=== PATIENT | female | born 1965 | race Two or more races ===

== ENCOUNTER 2018-09-06 07:02 | Day surgery (SDC) | payer BC ==
[2018-09-03 15:01] VITALS: BMI 31.1
--- NOTE | 2018-09-06 06:31 | P.GSHP ---
History of Present Illness H&P Date: 09/06/18 CHIEF COMPLAINT: GERD HISTORY OF PRESENT ILLNESS: The patient is a 53-year-old female who presents reports gastroesophageal reflux disease. Upper endoscopy was offered for further evaluation and management. PAST MEDICAL HISTORY: Please see list. PAST SURGICAL HISTORY: Please see list. MEDICATIONS: Please see list. ALLERGIES: Please see list. SOCIAL HISTORY: No illicit drug use FAMILY HISTORY: No reports of Crohn disease or ulcerative colitis. REVIEW OF ORGAN SYSTEMS: CONSTITUTIONAL: No reports of fevers or chills. GI: Denies any blood in stools or constipation. PHYSICAL EXAM: VITAL SIGNS: Stable GENERAL: Well-developed and pleasant in no acute distress. HEENT: No scleral icterus. Extraocular movements grossly intact. Moist buccal mucosa. NECK: Supple without lymphadenopathy. CHEST: Unlabored respirations. Equal bilateral excursions. CARDIOVASCULAR: Regular rate and rhythm. Distal 2+ pulses. ABDOMEN: Soft, nondistended. MUSCULOSKELETAL: No clubbing, cyanosis, or edema. ASSESSMENT: 1. Gastroesophageal reflux disease PLAN: 1. Recommend proceeding with an upper endoscopy Past Medical History Past Medical History: GERD/Reflux, Hyperlipidemia, Hypertension, Thyroid Disorder Additional Past Medical History / Comment(s): graves disease- tx with radioactive iodine History of Any Multi-Drug Resistant Organisms: None Reported Past Surgical History: Appendectomy Additional Past Surgical History / Comment(s): laparoscopic surgery, D&C, thyroid tx with radioactive iodine tx Past Anesthesia/Blood Transfusion Reactions: No Reported Reaction Smoking Status: Never smoker - Past Family History Mother Family Medical History: No Reported History Sister(s) Family Medical History: Cancer Additional Family Medical History / Comment(s): 1 breast cancer , 1 uterine cancer Medications and Allergies Home Medications Medication Instructions Recorded Confirmed Type Oswald/D3/Mag11/Zinc/Senior Technical Support Engineer/Kimani/Bor 1 each PO DAILY 09/03/18 09/03/18 History [Caltrate 600+D Plus Tablet] Cholecalciferol (Vitamin D3) 2,000 unit PO DAILY 09/03/18 09/03/18 History [Vitamin D3] Levothyroxine Sodium [Levo-T] 88 mcg PO DAILY 09/03/18 09/03/18 History Lisinopril [Zestril] 10 mg PO DAILY 09/03/18 09/03/18 History Omeprazole 40 mg PO DAILY 09/03/18 09/03/18 History Pravastatin Sodium [Pravachol] 40 mg PO DAILY 09/03/18 09/03/18 History Allergies Allergy/AdvReac Type Severity Reaction Status Date / Time diphenhydramine Allergy pounding Verified 09/03/18 14:51 [From Benadryl] heart and shakiness
[~2018-09-06 07:02] MED LIST: LACTATED RINGERS 1,000 ML IV SCH
[2018-09-06 07:20] VITALS: TEMP 97.7
[2018-09-06] MEDS ORDERED: LIDOCAINE 1% INJ 10MG/ML (20 ML MDV) ONE (07:31)
[2018-09-06] MEDS ORDERED: PROPOFOL 10 MG/ML 20 ML VIAL IV ONE (07:31)
--- NOTE | 2018-09-06 07:44 | P.PCN ---
Date of Procedure: 09/06/18 Description of Procedure: PREOPERATIVE DIAGNOSIS: Gastroesophageal reflux disease. Abnormal upper GI POSTOPERATIVE DIAGNOSIS: Gastroesophageal reflux disease. Abnormal upper GI Gastritis OPERATION: Esophagogastroduodenoscopy with biopsies along antrum. SURGEON: Hillary Bishop MD ANESTHESIA: MAC. INDICATIONS: The patient is a 53-year-old female who presents with a history of reflux disease. Benefits and risks of the procedure were described. Informed consent was obtained. DESCRIPTION: The patient was brought into the endoscopy suite and laid in the left lateral decubitus position. An Olympus gastroscope was passed along the posterior oropharynx down to the distal esophagus where the squamocolumnar junction was encountered at 36 cm from the incisors. The stomach was entered and no bile reflux was found. Additional findings are listed below. Biopsies with cold forceps were obtained of the antrum. The first through third portion of the duodenum was examined and unremarkable. Retroflexion of the scope confirmed Hill grade 2 lower esophageal valve. The squamocolumnar junction demonstrated LA grade A erosive esophagitis. The stomach was desufflated. The patient tolerated the procedure well. FINDINGS: Squamocolumnar junction 36 cm from the incisors. Diaphragmatic hiatus at 36 cm. Hill grade 2 lower esophageal valve. LA grade A erosive esophagitis. No active duodenitis. Chronic gastritis RECOMMENDATIONS: Upper endoscopy as needed. Plan - Discharge Summary Discharge Rx Participant: No New Discharge Prescriptions: No Action Pravastatin Sodium [Pravachol] 40 mg PO DAILY Levothyroxine Sodium [Levo-T] 88 mcg PO DAILY Cholecalciferol (Vitamin D3) [Vitamin D3] 2,000 unit PO DAILY Oswald/D3/Mag11/Zinc/Engravings Polisher/Kimani/Bor [Caltrate 600+D Plus Tablet] 1 each PO DAILY Lisinopril [Zestril] 10 mg PO DAILY Omeprazole 40 mg PO DAILY Discharge Medication List Oswald/D3/Mag11/Zinc/Engravings Polisher/Kimani/Bor [Caltrate 600+D Plus Tablet] 1 each PO DAILY 09/03/18 [History] Cholecalciferol (Vitamin D3) [Vitamin D3] 2,000 unit PO DAILY 09/03/18 [History] Levothyroxine Sodium [Levo-T] 88 mcg PO DAILY 09/03/18 [History] Lisinopril [Zestril] 10 mg PO DAILY 09/03/18 [History] Omeprazole 40 mg PO DAILY 09/03/18 [History] Pravastatin Sodium [Pravachol] 40 mg PO DAILY 09/03/18 [History] Follow up Appointment(s)/Referral(s): Hillary Bishop MD [STAFF PHYSICIAN] - 09/24/18 Patient Instructions/Handouts: Gastroesophageal Reflux Disease (DC) Discharge Disposition: HOME SELF-CARE
[2018-09-06 07:47] VITALS: RESP 18
[2018-09-06 08:21] VITALS: BP 136/97; PULSE 56
== END 2018-09-06 08:33 | disposition home or self-care (01) ==
LOC: ORWHC2ENDO 07:02
PROVIDERS: ATTEND Surgery Plastic and Reconstructive Surgery
DX: K29.50 Unspecified chronic gastritis without bleeding (principal); K22.10 Ulcer of esophagus without bleeding; K21.9 Gastro-esophageal reflux disease without esophagitis; E78.5 Hyperlipidemia, unspecified; I10 Essential (primary) hypertension; E07.9 Disorder of thyroid, unspecified; Z79.890 Hormone replacement therapy; Z79.899 Other long term (current) drug therapy; Z88.8 Allergy status to other drugs, medicaments and biological substances
CPT/HCPCS: 88305; 43239; J2001; J2704